=== PATIENT | male | born 1980 | race African-American/Black ===

== ENCOUNTER 2022-01-07 15:14 | Emergency (ER) | payer OTHER ==
[~2022-01-07] VITALS: Ht 180.3 cm; Wt 104.5 kg
[2022-01-07 15:25] VITALS: BP 137/88; TEMP 98.1
[2022-01-07] MEDS ORDERED: CONCERTA54 MG PO (15:45)
[2022-01-07 16:09] VITALS: PULSE 86
[2022-01-07] MEDS ORDERED: PROZAC 20MG20 MG PO (18:33)
== END 2022-01-07 16:10 | disposition home or self-care (01) ==
LOC: COL.ER 15:14
DX: Z76.0 Encounter for issue of repeat prescription (principal)